=== PATIENT | female | born 1990 | race Caucasian/White ===

== ENCOUNTER 2018-09-10 14:18 | Emergency (ER) | payer SELFPAY ==
[2018-09-10] MEDS ORDERED: EPINEPHrine 1:10,000 1 MG/10 ML Syringe ONE (15:57)
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
== END 2018-09-10 18:10 | disposition expired ==
LOC: LL.ED 14:18
DX: T75.1XXA Unspecified effects of drowning and nonfatal submersion, initial encounter (principal); I46.8 Cardiac arrest due to other underlying condition; Z88.0 Allergy status to penicillin; Z88.1 Allergy status to other antibiotic agents
CPT/HCPCS: 31500; 92950; 96374; 99285; J0171